=== PATIENT | male | born 1950 | race Caucasian/White ===

== ENCOUNTER 2018-01-04 13:05 | Inpatient (IN) | payer OTHER, BC ==
[2018-01-04] VITALS (9 sets, daily range): BP systolic 108–126; BP diastolic 68–79
[~2018-01-04] VITALS: Ht 172.7 cm; Wt 118.8 kg
[2018-01-04 13:38] LABS: BASOPHIL (%) 0.2 % (0-1); EOSINOPHIL (%) 0.1 % (0-5); HEMATOCRIT 48.9 % (38.0-50.0); HEMOGLOBIN 16.3 G/DL (12.5-16.6); IMMATURE GRANULOCYTE (%) 0.5 % (0.0-0.7); LYMPHOCYTE (%) 26.3 % (15-42); LYMPHOCYTE COUNT 3.3 K/uL (1.0-2.8); MCH 31.9 PG (29.0-34.0); MCHC 33.3 G/DL (30.0-36.0); MCV 95.7 FL (86-99); MONOCYTE (%) 3.5 % (3-12); MONOCYTE COUNT 0.4 K/uL (0-0.8); NEUTROPHIL (%) 69.4 % (45-76); NEUTROPHIL COUNT 8.6 K/uL (1.8-6.4); PLATELET COUNT 173 K/uL (156-360); RBC DIS.WIDTH-CV 13.5 % (11.8-14.6); RBC DIS.WIDTH-SD 47.8 % (39-53); RED BLOOD COUNT 5.11 M/uL (4.00-5.50); WHITE BLOOD COUNT 12.4 K/uL (4.1-10.2)
[2018-01-04] MEDS ORDERED: CELEXA2 MG/1 ML PO ×2 (13:40→13:45)
[2018-01-04] MEDS ORDERED: ELIQUIS5 MG PO (13:46)
[2018-01-04] MEDS ORDERED: LISINOPRIL10 MG PO (13:46)
[2018-01-04 13:47] LABS: INTER. NORMALIZED RATIO 1.6
[2018-01-04] MEDS ORDERED: LOPRESSOR25 MG PO (13:47)
[2018-01-04] MEDS ORDERED: OMEPRAZOLE20 MG PO (13:48)
[2018-01-04] MEDS ORDERED: PRAVACHOL40 MG PO (13:48)
[2018-01-04 13:50] LABS: PTT 28.2 SEC (25-37)
[2018-01-04 13:53] LABS: AMYLASE 93 IU/L (1-118); CHLORIDE 102 mEq/L (99-109); SODIUM 137 mEq/L (136-147)
[2018-01-04 13:54] LABS: GLUCOSE 162 mg/dL (70-99)
[2018-01-04 13:58] LABS: CREATININE 5.5 mg/dL (0.6-1.3); GFR ESTIMATE (CALCULATED) 11 mL/min/ (58.99-99999); SERUM ETHYL ALCOHOL < 10 mg/dL
[2018-01-04 13:59] LABS: POTASSIUM 6.8 mEq/L (3.7-5.4); UREA NITROGEN (BUN) 48 mg/dL (9-23)
[2018-01-04 14:01] LABS: LIPASE 70 U/L (1.0-51.0)
[2018-01-04 14:01] LABS: TROP-I INTERPRETATION NEGATIVE; TROPONIN-I 0.11 ng/mL (0.0-0.30)
[2018-01-04 16:08] LABS: CHLORIDE 106 MEQ/L (99-109); CREATININE 5.5 MG/DL (0.6-1.3); GFR ESTIMATE (CALCULATED) 11 mL/min/ (58.99-99999); SODIUM 138 MEQ/L (136-147); UREA NITROGEN (BUN) 48 mg/dL (9-23)
[2018-01-04 16:12] LABS: GLUCOSE 94 mg/dL (70-99); POTASSIUM 5.2 MEQ/L (3.7-5.4)
[2018-01-04 22:22] LABS: CHLORIDE 106 MEQ/L (99-109); CREATININE 4.9 MG/DL (0.6-1.3); GFR ESTIMATE (CALCULATED) 13 mL/min/ (58.99-99999); GLUCOSE 105 mg/dL (70-99); POTASSIUM 5.8 MEQ/L (3.7-5.4); SODIUM 138 MEQ/L (136-147); UREA NITROGEN (BUN) 52 mg/dL (9-23)
[2018-01-05] VITALS (21 sets, daily range): BP systolic 96–160; BP diastolic 57–90
[2018-01-05 07:10] LABS: BASOPHIL (%) 0.5 % (0-1); BASOPHIL COUNT 0.1 K/uL (0-0.1); EOSINOPHIL (%) 0.2 % (0-5); HEMATOCRIT 47.4 % (38.0-50.0); HEMOGLOBIN 16.5 G/DL (12.5-16.6); IMMATURE GRANULOCYTE (%) 0.4 % (0.0-0.7); LYMPHOCYTE (%) 15.3 % (15-42); LYMPHOCYTE COUNT 2.9 K/uL (1.0-2.8); MCH 32.5 PG (29.0-34.0); MCHC 34.8 G/DL (30.0-36.0); MCV 93.5 FL (86-99); MONOCYTE (%) 8.8 % (3-12); MONOCYTE COUNT 1.6 K/uL (0-0.8); NEUTROPHIL (%) 74.8 % (45-76); PLATELET COUNT 166 K/uL (156-360); RBC DIS.WIDTH-CV 13.2 % (11.8-14.6); RBC DIS.WIDTH-SD 44.9 % (39-53); RED BLOOD COUNT 5.07 M/uL (4.00-5.50); WHITE BLOOD COUNT 18.7 K/uL (4.1-10.2)
[2018-01-05 07:32] LABS: ALBUMIN 4.1 G/DL (3.2-4.8); ALKALINE PHOSPHATASE 67 IU/L (3-129); ALT (GPT) 141 IU/L (3-49); AST (GOT) 94 IU/L (2-34); CHLORIDE 106 MEQ/L (99-109); CREATININE 4.4 MG/DL (0.6-1.3); GFR ESTIMATE (CALCULATED) 14 mL/min/ (58.99-99999); MAGNESIUM 1.9 mg/dl (1.3-2.7); PHOSPHORUS 4.2 mg/dL (2.5-4.9); POTASSIUM 5.1 MEQ/L (3.7-5.4); SODIUM 140 MEQ/L (136-147); TOTAL BILIRUBIN 0.9 MG/DL (0.0-1.0); UREA NITROGEN (BUN) 55 mg/dL (9-23)
[2018-01-05 07:35] LABS: GLUCOSE 199 mg/dL (70-99)
[2018-01-05 19:28] LABS: CHLORIDE 110 MEQ/L (99-109); MAGNESIUM 1.7 mg/dl (1.3-2.7); PHOSPHORUS 3.9 mg/dL (2.5-4.9); POTASSIUM 4.1 MEQ/L (3.7-5.4); SODIUM 139 MEQ/L (136-147); UREA NITROGEN (BUN) 52 mg/dL (9-23)
[2018-01-05 19:33] LABS: CREATININE 2.9 MG/DL (0.6-1.3); GFR ESTIMATE (CALCULATED) 23 mL/min/ (58.99-99999); GLUCOSE 109 mg/dL (70-99)
[2018-01-06] VITALS (22 sets, daily range): BP systolic 119–152; BP diastolic 72–107
[2018-01-06 06:30] LABS: BASOPHIL (%) 0.4 % (0-1); EOSINOPHIL (%) 0.7 % (0-5); EOSINOPHIL COUNT 0.1 K/uL (0-0.3); HEMATOCRIT 37.5 % (38.0-50.0); IMMATURE GRANULOCYTE (%) 0.4 % (0.0-0.7); LYMPHOCYTE (%) 24.2 % (15-42); LYMPHOCYTE COUNT 1.7 K/uL (1.0-2.8); MCH 32.8 PG (29.0-34.0); MCHC 34.7 G/DL (30.0-36.0); MCV 94.7 FL (86-99); MONOCYTE COUNT 0.7 K/uL (0-0.8); NEUTROPHIL (%) 64.3 % (45-76); NEUTROPHIL COUNT 4.4 K/uL (1.8-6.4); RBC DIS.WIDTH-CV 12.8 % (11.8-14.6); RBC DIS.WIDTH-SD 44.3 % (39-53); WHITE BLOOD COUNT 6.9 K/uL (4.1-10.2)
[2018-01-06 06:42] LABS: RED BLOOD COUNT 3.96 M/uL (4.00-5.50)
[2018-01-06 06:52] LABS: CHLORIDE 112 MEQ/L (99-109); GFR ESTIMATE (CALCULATED) 32 mL/min/ (58.99-99999); GLUCOSE 92 mg/dL (70-99); MAGNESIUM 1.6 mg/dl (1.3-2.7); PHOSPHORUS 3.7 mg/dL (2.5-4.9); POTASSIUM 4.4 MEQ/L (3.7-5.4); SODIUM 140 MEQ/L (136-147); UREA NITROGEN (BUN) 48 mg/dL (9-23)
[2018-01-06 06:58] LABS: CREATININE 2.2 MG/DL (0.6-1.3); PLAT.SUFFICIENCY DECREASED
[2018-01-06 07:06] LABS: PLATELET COUNT 85 K/uL (156-360)
[2018-01-06 08:53] LABS: CREATINE KINASE 98 IU/L (1-294)
[2018-01-06 09:22] LABS: APPEARANCE SL.HAZY ((CLEAR)); BILIRUBIN NEGATIVE; BLOOD MODERATE; COLOR YELLOW ((YELLOW)); GLUCOSE (STRIP) NEGATIVE; KETONES NEGATIVE; LEUKOCYTES NEGATIVE; NITRITE NEGATIVE; PROTEIN (STRIP) NEGATIVE; SPECIFIC GRAVITY 1.013 (1.000-1.030); UROBILINOGEN 0.2 MG/DL (0.2-1.0)
[2018-01-06 09:24] LABS: BACTERIA RARE /HPF; EPITHELIAL CELLS RARE /HPF; MUCUS TRACE /LPF; RED BLOOD CELLS 30-40 /HPF (0-5); WHITE BLOOD CELLS 0-5 /HPF (0-5)
[2018-01-06 09:46] LABS: UR CREATININE CONCENTRATION 112.2 MG/DL
[2018-01-06 11:18] LABS: HEMATOCRIT 38.4 % (38.0-50.0); HEMOGLOBIN 13.4 G/DL (12.5-16.6); MCH 32.3 PG (29.0-34.0); MCHC 34.9 G/DL (30.0-36.0); MCV 92.5 FL (86-99); PLATELET COUNT 94 K/uL (156-360); RBC DIS.WIDTH-CV 12.6 % (11.8-14.6); RED BLOOD COUNT 4.15 M/uL (4.00-5.50)
[2018-01-06 11:19] LABS: CHLORIDE 113 MEQ/L (99-109); CREATININE 1.8 MG/DL (0.6-1.3); GFR ESTIMATE (CALCULATED) 40 mL/min/ (58.99-99999); GLUCOSE 131 mg/dL (70-99); POTASSIUM 4.6 MEQ/L (3.7-5.4); SODIUM 139 MEQ/L (136-147); UREA NITROGEN (BUN) 45 mg/dL (9-23)
[2018-01-06 15:54] LABS: THYROTROPIN (TSH) 0.34 MIU/L (0.4-5.5)
[2018-01-07] VITALS (25 sets, daily range): BP systolic 0–158; BP diastolic 0–97
[2018-01-07 04:23] LABS: BASOPHIL (%) 0.5 % (0-1); EOSINOPHIL (%) 1.5 % (0-5); EOSINOPHIL COUNT 0.1 K/uL (0-0.3); IMMATURE GRANULOCYTE (%) 0.2 % (0.0-0.7); LYMPHOCYTE (%) 26.4 % (15-42); LYMPHOCYTE COUNT 1.7 K/uL (1.0-2.8); MCH 31.5 PG (29.0-34.0); MCHC 34.2 G/DL (30.0-36.0); MONOCYTE (%) 10.6 % (3-12); MONOCYTE COUNT 0.7 K/uL (0-0.8); NEUTROPHIL (%) 60.8 % (45-76); PLATELET COUNT 91 K/uL (156-360); RBC DIS.WIDTH-CV 12.6 % (11.8-14.6); RBC DIS.WIDTH-SD 42.3 % (39-53); RED BLOOD COUNT 4.13 M/uL (4.00-5.50); WHITE BLOOD COUNT 6.5 K/uL (4.1-10.2)
[2018-01-07 05:36] LABS: ALBUMIN 3.1 G/DL (3.2-4.8); CHLORIDE 113 MEQ/L (99-109); CREATININE 1.6 MG/DL (0.6-1.3); GFR ESTIMATE (CALCULATED) 46 mL/min/ (58.99-99999); GLUCOSE 98 mg/dL (70-99); MAGNESIUM 1.8 mg/dl (1.3-2.7); PHOSPHORUS 3.3 mg/dL (2.5-4.9); POTASSIUM 4.6 MEQ/L (3.7-5.4); SODIUM 141 MEQ/L (136-147); UREA NITROGEN (BUN) 33 mg/dL (9-23)
[2018-01-07] MEDS ORDERED: CELEXA10 MG PO (11:15)
[2018-01-07] MEDS ORDERED: GUMMI BEAR MUL1 EACH PO (11:16)
[2018-01-07] MEDS ORDERED: AMOXICILLIN875 MG PO (11:16)
[2018-01-07] MEDS ORDERED: TYLENOL PM EX-1 EACH PO (11:16)
[2018-01-08] VITALS (16 sets, daily range): BP systolic 135–156; BP diastolic 75–96
[2018-01-08 06:03] LABS: ALBUMIN 3.2 G/DL (3.2-4.8); CHLORIDE 108 MEQ/L (99-109); CREATININE 1.4 MG/DL (0.6-1.3); GFR ESTIMATE (CALCULATED) 54 mL/min/ (58.99-99999); GLUCOSE 100 mg/dL (70-99); PHOSPHORUS 3.4 mg/dL (2.5-4.9); POTASSIUM 4.5 MEQ/L (3.7-5.4); SODIUM 138 MEQ/L (136-147); UREA NITROGEN (BUN) 30 mg/dL (9-23)
[2018-01-08 06:17] LABS: HEMATOCRIT 37.7 % (38.0-50.0); HEMOGLOBIN 13.2 G/DL (12.5-16.6); MCH 32.4 PG (29.0-34.0); MCV 92.6 FL (86-99); PLATELET COUNT 92 K/uL (156-360); RBC DIS.WIDTH-CV 12.5 % (11.8-14.6); RBC DIS.WIDTH-SD 42.4 % (39-53); RED BLOOD COUNT 4.07 M/uL (4.00-5.50); WHITE BLOOD COUNT 6.3 K/uL (4.1-10.2)
[2018-01-09 00:05] VITALS: BP 135/86
[2018-01-09 04:05] VITALS: BP 130/78
[2018-01-09 06:07] LABS: CHLORIDE 109 MEQ/L (99-109); CREATININE 1.3 MG/DL (0.6-1.3); GFR ESTIMATE (CALCULATED) 59 mL/min/ (58.99-99999); GLUCOSE 102 mg/dL (70-99); POTASSIUM 4.6 MEQ/L (3.7-5.4); SODIUM 140 MEQ/L (136-147); UREA NITROGEN (BUN) 25 mg/dL (9-23)
[2018-01-09 07:30] VITALS: BP 143/85
[2018-01-09 09:20] LABS: HEMATOCRIT 40.4 % (38.0-50.0); HEMOGLOBIN 14.1 G/DL (12.5-16.6); MCH 32.1 PG (29.0-34.0); MCHC 34.9 G/DL (30.0-36.0); RBC DIS.WIDTH-CV 12.9 % (11.8-14.6); RBC DIS.WIDTH-SD 43.1 % (39-53); RED BLOOD COUNT 4.39 M/uL (4.00-5.50)
[2018-01-09 09:24] LABS: PLATELET COUNT 124 K/uL (156-360)
[2018-01-09 11:22] VITALS: BP 143/85
[2018-01-10 14:09] LABS: Heparin Induced Plt Ab Negative (Negative)
[2018-01-10 15:21] LABS: UFH SRA Result Negative (Negative)
== END 2018-01-09 16:05 | disposition home health service (06) | DRG 228 ==
LOC: EME 13:05 → CATH 15:28 → ENRESERV 15:40 → 2SOUTH 15:41 → 4WEST 15:41 → ENRESERV 15:42 → 4WEST 15:44 → ENRESERV 01-08 12:32 → 4EAST 01-08 19:44 → ENPENDDIS 01-09 → 4EAST 01-09 16:05
PROVIDERS: Emergency Medicine; Hospitalist; Internal Medicine; Internal Medicine Cardiovascular Disease; Specialist
DX: I44.2 Atrioventricular block, complete (principal); N17.0 Acute kidney failure with tubular necrosis; E87.5 Hyperkalemia; E87.2 Acidosis; D69.6 Thrombocytopenia, unspecified; I48.0 Paroxysmal atrial fibrillation; I48.92 Unspecified atrial flutter; I95.9 Hypotension, unspecified; J32.9 Chronic sinusitis, unspecified; R19.7 Diarrhea, unspecified; R55 Syncope and collapse; R60.9 Edema, unspecified; E11.9 Type 2 diabetes mellitus without complications; I10 Essential (primary) hypertension; E78.00 Pure hypercholesterolemia, unspecified; E78.5 Hyperlipidemia, unspecified; E66.9 Obesity, unspecified; Z79.01 Long term (current) use of anticoagulants; Z68.39 Body mass index [BMI] 39.0-39.9, adult
CPT/HCPCS: 71045; 76770; 80048; 80048 91; 80053; 80069; 81003; 82150; 82436; 82550; 82570; 82948; 83690; 83735; 84100; 84156; 84300; 84439; 84443; 84484; 85025; 85027; 85610; 85730; 86022 90; 86850; 86900; 86901; 87641; 93005; 93306; 94799; 99281; 99285; C1751; C1786; C1894; C1898; G0480; J0690; J1200; J1265; J2250; J2270; J3010; J3475; J7030; J7050; S0020